=== PATIENT | female | born 1975 | race African-American/Black ===

== ENCOUNTER 2016-06-18 17:26 | Emergency (ER) | payer OTHER ==
[~2016-06-18] VITALS: Ht 165.1 cm; Wt 139.3 kg
[2016-06-18 18:00] VITALS: BP 146/86
[2016-06-18] MEDS ORDERED: DEXAMETHASONE 4 MG TABLET PO ONE (18:45)
[2016-06-18] MEDS ORDERED: BUTALB/APAP/CAFEIN 50/325/40MG TABLET. PO ONE (18:45)
--- NOTE | 2016-06-18 21:32 | ED.ADGEN ---
Past Medical History Past Medical History: Hypertension, Migraines Past Surgical History: Tubal ligation Alcohol Use: Rarely Drug Use: None Adult General Chief Complaint Chief Complaint: HEADACHE HPI HPI Patient is a 40 year old woman, with a history of migraine headache, diagnosed by her primary care provider, who presents to the emergency department with complaint of persistent headache over the past several days. Patient states she was seen in urgent care center, she states that her symptoms are consistent with her previous headache, gradually worsening, located on the right side of her head, associated blurry vision in the right eye she woke early this morning. She states that she did take Excedrin this morning. Patient states that due to the persistence of symptoms she was seen at urgent care center, they told her to come to the ED for additional evaluation. Patient states that the blurred vision is fully resolved, she states that it is consistent with her previous headaches as stated, that there are no new or different symptoms at this time, she strains mild nausea as well, and "floaters" in the right eye which is her aura, and heralds onset of her migraines, she denies any injuries, any fevers or chills, any neck pain, and her upper respiratory or lower 3 symptoms, any GI or complaints. No rashes, no ear pain, no weakness numbness or tingling. Review of Systems Review of Systems Constitutional: Denies fever or chills. [] Eyes: Denies change in visual acuity. [] HENT: Denies nasal congestion or sore throat. [] Respiratory: Denies cough or shortness of breath. [] Cardiovascular: Denies chest pain or edema. [] GI: Denies abdominal pain, nausea, vomiting, bloody stools or diarrhea. [] : Denies dysuria. [] Musculoskeletal: Denies back pain or joint pain. [] Integument: Denies rash. [] Neurologic: Denies focal weakness or sensory changes. Right-sided headache, associated with blurred vision now resolved, nausea, consistent with previous episodes of migraine headache. Endocrine: Denies polyuria or polydipsia. [] Lymphatic: Denies swollen glands. [] Psychiatric: Denies depression or anxiety. [] Current Medications Current Medications Current Medications Medications (Trade) Dose Ordered Sig/Jani Start Time Stop Time Status Last Admin Dose Admin Acetaminophen/ Butalbital/ Caffeine (Fioricet) 1 tab 1X ONCE 06/18/16 18:45 06/18/16 18:46 DC 06/18/16 19:02 1 TAB Dexamethasone (Decadron) 6 mg 1X ONCE 06/18/16 18:45 06/18/16 18:46 DC 06/18/16 19:02 6 MG Allergies Allergies Allergies Coded Allergies Type Severity Reaction Last Updated Verified No Known Drug Allergies 06/18/16 No Physical Exam Physical Exam Constitutional: Well developed, well nourished, no acute distress, non-toxic appearance. [] HENT: Normocephalic, atraumatic, bilateral external ears normal, oropharynx moist, no oral exudates, nose normal. [] Negative jolt accentuation test. Eyes: PERRLA, EOMI, conjunctiva normal, no discharge. [] Patient with 20/20 vision in both eyes with corrective lenses in place. Neck: Normal range of motion, no tenderness, supple, no stridor. [] Cardiovascular:Heart rate regular rhythm, no murmurs, S1, S2, no rubs or gallops. [] Lungs & Thorax: Bilateral breath sounds clear to auscultation no wheezing, rhonchi, rales. No chest wall tenderness or crepitus. Abdomen: Bowel sounds normal, soft, no tenderness, no masses, no pulsatile masses. [] Skin: Warm, dry, no erythema, no rash. [] Back: No tenderness, no CVA tenderness. [] Extremities: No tenderness, no cyanosis, no clubbing, ROM intact, no edema. [] Neurologic: Alert and oriented X 3, normal motor function, normal sensory function, no focal deficits noted. [] Psychologic: Affect normal, judgement normal, mood normal. [] Current Patient Data Vital Signs Vital Signs Date Time Temp Pulse Resp B/P Pulse Ox O2 Delivery O2 Flow Rate FiO2 06/18/16 18:00 98.5 95 20 146/86 98 Room Air 98.5 EKG EKG ECG: Sinus rhythm, heart rate 93 beats minute, no ectopy. As interpreted by me. Radiology/Procedures Radiology/Procedures Not indicated. [] Course & Med Decision Making Course & Med Decision Making Pertinent Labs and Imaging studies reviewed. (See chart for details) Although patient was sent to the ED for additional evaluation for an urgent care center, she is denying any change in her known migraine type symptoms, the headache is similar lasted longer than usual. She states however at this point she is "on the downside", after taking Excedrin part to the ED, states her symptoms are significantly improved at this time. I did discuss with her the use of steroids, IV fluids, and pain medication, to hopefully abort return of symptoms. We discussed indications for emergent imaging, patient is in agreement that she does not have any symptoms that she feel would warrant emergent imaging in the ED at this time. She is agreeable to following up with neurology for additional evaluation to determine if abortive medications may be effective in preventing recurrence of her headaches as opposed to waiting to see if they occur, and treating after the fact. She has not previously received any neurology evaluation, given contact patient for Dr. Gomez of neurology. On reevaluation, patient is requesting to leave at this time, is declining IV medication, stating that her headache is much better at this point. Patient was given oral steroid, Fioricet, prescription for Fioricet, contact information and precautions as stated above, to follow-up as directed, and return to the ED if any concerning symptoms develop. Patient discharged home in stable condition with family. Dragon Disclaimer Dragon Disclaimer This electronic medical record was generated, in whole or in part, using a voice recognition dictation system. Departure Impression: Primary Impression: Headache Disposition: 01 HOME, SELF-CARE Condition: IMPROVED Problem Qualifiers Primary Impression: Headache Headache type: unspecified Headache chronicity pattern: acute headache Intractability: not intractable Qualified Code: R51 - Headache ABIDA MENSAH DO Jun 18, 2016 21:32
== END 2016-06-18 19:03 | disposition home or self-care (01) ==
LOC: ER 17:26
DX: R51 Headache (principal); G43.909 Migraine, unspecified, not intractable, without status migrainosus; I10 Essential (primary) hypertension
CPT/HCPCS: 99283; J8540

== ENCOUNTER → 2017-02-11 | Outpatient (CLI) | payer OTHER ==
--- NOTE | 2017-02-11 16:53 | RAD ---
EXAM: Pelvic sonogram. HISTORY: Menorrhagia. TECHNIQUE: Transabdominal and transvaginal sonographic imaging of the pelvis was performed. COMPARISON: None. FINDINGS: The uterus measures 9.6 x 6.6 x 5.2 cm. There is a thickened heterogeneous endometrial stripe measuring 1.75 cm. There is a 10 x 8 x 8 mm rounded lesion isoechoic to surrounding endometrium within the endometrial cavity. This demonstrates internal blood flow. The right ovary measures 3.8 x 3.7 x 2.7 cm and contains a 3.2 cm cyst. There is normal blood flow within the right ovary. The left ovary is not seen. There is no pelvic free fluid. IMPRESSION: 1. Heterogeneous thickened endometrium. Follow-up at a different phase of the patient's menstrual cycle or tissue sampling may be indicated if there is concern for endometrial pathology. 2. 10 mm rounded lesion with blood flow within the endometrial cavity, the appearance of which favors a polyp. This can be further assessed with a saline sonohysterogram or hysteroscopy. 3. 3.2 cm right ovarian cyst. 4. Nonvisualization of the left ovary.
== END | disposition home or self-care (01) ==
LOC: US 15:55
PROVIDERS: ATTEND Family Medicine
DX: N92.0 Excessive and frequent menstruation with regular cycle (principal); N83.201 Unspecified ovarian cyst, right side; R93.8 Abnormal findings on diagnostic imaging of other specified body structures
CPT/HCPCS: 76830; 76856

== ENCOUNTER 2017-03-19 05:50 | Day surgery (SDC) | payer OTHER ==
[~2017-03-19 05:50] MED LIST: ASPI1TAB31 PO; CHOL100013 PO; FERR-26 PO; LOSA100T6 PO; SERT100T PO
[2017-03-19 06:24] LABS: NEG OBC UR NEG; POS OBC UR POS
[2017-03-19] MEDS ORDERED: LIDOCAINE 2% PF Vial for OR 5 ML VIAL. ONE (06:38)
[2017-03-19] MEDS ORDERED: ONDANSETRON PF 4 MG/2 ML VIAL. ONE (06:38)
[2017-03-19] MEDS ORDERED: DEXAMETHASONE SOD PHOS 20 MG/5 ML VIAL. ONE (06:38)
[2017-03-19] MEDS ORDERED: SEVOFLURANE 31 TO 60 MINUTES. IH ONE (06:38)
[2017-03-19] MEDS ORDERED: PROPOFOL 20 ML IV ONE ×2 (06:38→07:59)
[2017-03-19] MEDS ORDERED: LIDOCAINE 1% PF 2 ML VIAL. ID PRN (07:00)
[2017-03-19] MEDS ORDERED: ONDANSETRON PF 4 MG/2 ML VIAL. IV PRN (07:00)
[2017-03-19] MEDS ORDERED: IV RINGERS,LACTATED 1000ML 1,000 ML IV SCH (07:00)
[2017-03-19] MEDS ORDERED: fentaNYL PF VIAL 100 MCG/2 ML VIAL IV PRN ×2 (07:00)
[2017-03-19] MEDS ORDERED: MORPHINE SULFATE 2 MG/ML DISP.SYRIN. IV PRN (07:00)
[2017-03-19] MEDS ORDERED: PROCHLORPERAZINE 10 MG/2 ML VIAL. IV PRN (07:00)
[2017-03-19] MEDS ORDERED: HYDROmorphone 2 MG/ML VIAL IV PRN (07:00)
[2017-03-19] MEDS ORDERED: KETOROLAC 30 MG/ML INJ FOR OR. INJ ONE (08:00)
[2017-03-19] MEDS ORDERED: HYDROcodone/APAP 5/325MG 1 TAB TABLET PO PRN (08:30)
[2017-03-19] MEDS ORDERED: NALOXONE 0.4 MG/ML VIAL. IV PRN (08:30)
[2017-03-19] MEDS ORDERED: SIMETHICONE 80 MG TAB.CHEW PO PRN (08:30)
[2017-03-19] MEDS ORDERED: oxyCODONE/APAP 5/325 1 TAB TABLET PO PRN ×2 (08:30→08:45)
[2017-03-19] MEDS ORDERED: diphenhydrAMINE 50 MG/ML VIAL IV PRN (08:30)
[2017-03-19] MEDS ORDERED: CALCIUM CARBONATE 500 MG TAB.CHEW PO PRN (08:30)
[2017-03-19] MEDS ORDERED: MAG HYDROX/ALUMINUM HYD/SIMETH 30 ML ORAL.SUSP PO PRN (08:30)
[2017-03-19] MEDS ORDERED: 0.9 % SODIUM CHLORIDE 10 ML DISP.SYRIN. IV PRN (08:30)
[2017-03-19] MEDS ORDERED: diphenhydrAMINE HCL 25 MG CAPSULE PO PRN (08:30)
--- NOTE | 2017-03-19 08:30 | PDOC ---
BRIEF OPERATIVE NOTE Date: Mar 19, 2017 Pre-Op Diagnosis DUB with endometrial thickening on sonogram Post-Op Diagnosis same Procedure Performed hysteroscopy D&C Surgeon Dr. Margaret Nunez Anesthesiologist Dr. Hubbard Anesthesia Type: General Blood Loss 20cc IV Fluid see anesthesia records Urine Output straight cath prior to procedure Specimens Obtained endometrial currettings Findings thickened endometrial lining, abundant tissue; cavity sounded to 9cm; 2-3 degree cervical prolapse with 2 cystocele also Complications none OPerative Note [id number] MARGARET NUNEZ MD Mar 19, 2017 08:30
[2017-03-19 09:01] VITALS: BP 112/53
--- NOTE | 2017-03-19 10:13 | OP ---
DATE OF SURGERY: 03/19/2017 PREOPERATIVE DIAGNOSES: The dysfunctional uterine bleeding to the point of anemia with endometrial thickening on sonogram and morbid obesity. POSTOPERATIVE DIAGNOSES: The dysfunctional uterine bleeding to the point of anemia with endometrial thickening on sonogram and morbid obesity. PROCEDURE: Hysteroscopy and D and C. SURGEON: Sari Nunez M.D. ANESTHESIA: General. ANESTHESIOLOGIST: Cheko Mobley M.D. ESTIMATED BLOOD LOSS: 20 mL. URINE OUTPUT: With a straight cath prior to procedure. SPECIMEN OBTAINED: Endometrial curettings. FINDINGS: Thickened endometrium, abundant tissue in the cavity. No obvious submucosal fibroids or any uterine like cavity anomalies, just abundant tissue, the cavity sounded to 9 cm. She had second to third degree cervical prolapse with a second-degree cystocele also. COMPLICATIONS: None. DESCRIPTION OF PROCEDURE: This patient was taken to the Operating Room where general anesthesia was placed. The patient was placed in dorsal lithotomy position in Rajinder stirrups. The patient's vagina was prepped and draped in the normal sterile fashion and a straight cath urine was done. Prior to starting, a time-out was performed. Once this was all agreed upon, a weighted speculum was placed in the patient's vagina. A single tooth tenaculum was used to grasp the anterior lip of the cervix. The Hudson dilators were used to dilate up to a 15-16; however, she was already completely dilated. She sounded to 9 cm. A 5 mm hysteroscope was passed in first with the above findings. Once this was done, a medium-sized sharp curette was placed in, scarping was done until I could feel some scarping on all sides or the grittiness and I put the scope back into make sure most of the tissue was gone and it looked a lot better. I did place it back in and get the fundus a little bit better, get a tiny bit more tissue and then, the procedure was ended. The tenaculum was removed. There was minimal bleeding from the tenaculum sites. A spoon was used to get out all the tissue during all of this and passed it off on a Telfa for permanent pathology and then, the weighted speculum was removed and a sponge stick was used to clear out any other clots and blood from the vagina. The patient tolerated the procedure well. She was awakened from anesthesia and taken to recovery room in stable condition. SARI NUNEZ MD DR: PORFIRIO/kwame JOB#: [id number] / [id number]
--- NOTE | 2017-03-20 13:23 | PATHOLOGY ---
PATHOLOGY REPORT * * * * * * * * FINAL DIAGNOSIS: Endometrial curettings: - Polypoid simple hyperplasia. COMMENT: There is no evidence of malignancy. (JPM:mml; 03/20/2017) REPORT ELECTRONICALLY SIGNED BY: Zen Ellis M.D. DATE/TIME: 03/20/2017 13:22 * * * * * * * * GROSS PATHOLOGY: Received in formalin labeled "Roya Santamaria endometrial tissue," are several segments of red-vizcaino membranous tissue admixed with mucoid material measuring 5.9 x 4.7 x 1.4 cm in aggregate dimensions. The specimen is submitted entirely in cassette A1 through A5. (TSD; 03/19/2017) INITIAL CPT CODE(S): A; 65709 Professional services performed [place] [address] Technical services performed by [facility] at [address] [place] [address] [address] [address]. SPECIMEN(S) RECEIVED: A.Endometrial tissue CLINICAL HISTORY: Dysfunctional uterine bleeding, anemia PATIENT: ROYA SANTAMARIA /AGE: 711/24/1975 (Age: 41) PATIENT #: [id number] ALT CASE #: SPECIMEN COLLECTION DATE: 03/19/2017 SPECIMEN RECEIVED DATE: 03/19/2017 [facility] - [address] [place] [address] - PHONE: [phone] * * * END OF REPORT * * *
== END 2017-03-19 09:40 | disposition home or self-care (01) ==
LOC: SURG 05:50
PROVIDERS: ATTEND Obstetrics & Gynecology
DX: N93.8 Other specified abnormal uterine and vaginal bleeding (principal); N85.01 Benign endometrial hyperplasia; E66.01 Morbid (severe) obesity due to excess calories; I10 Essential (primary) hypertension; Z98.51 Tubal ligation status; Z79.899 Other long term (current) drug therapy
CPT/HCPCS: 58558; 81025; 88305; J1100; J1885; J2405; J2704; J3010; J7030; J7120; J2001